=== PATIENT | female | born 1980 | race Caucasian/White ===

== ENCOUNTER 2024-05-07 09:11 | Emergency (ER) | payer BC, SELFPAY ==
[2024-05-07 10:00] VITALS: BP 126/67
[2024-05-07 10:17] VITALS: BP 126/67
--- NOTE | 2024-05-07 10:44 | ED.GENMED ---
History of Present Illness
General
Chief Complaint: Heart Rate Problem
Source: patient
Exam Limitations: none
Time Seen by Provider: 05/07/24 10:11
Nursing documentation reviewed up to this point in time: agreed with
History of Present Illness
History of Present Illness:
Patient is a healthy 44-year-old female presents to the emergency department complaining of her heart rate going from 80-1 20 at night for the past 3 nights. Patient went to urgent care and was sent to the emergency department. Patient states she
has palpitations every now and again but this is different. Patient feels lightheaded and weak with fatigue. Patient feels chilled and a sense of shaking inside. Patient denies shortness of breath or chest pain. Patient denies any weight changes
or sleep disturbance. Patient is going through menopause and feels as though she is having hot flashes. Patient 3 nights ago had 4 episodes of diarrhea and since that time has been nauseous postprandial. Patient denies any previous episodes of
similar episodes. Patient does not smoke or drink. Patient denies any illicit medications or drugs. Patient denies any real changes.
Past History
Past History
ED Past Medical History: Other (Sjogren's syndrome)
ED Past Surgical History: Cholecystectomy
Social History
Tobacco: Non-smoker
Alcohol: None
Drug: None
Review of Systems
Review of Systems
All Other Systems: ROS reviewed and negative except as documented in HPI and ROS
Constitutional: Reports fatigue and night sweats; Denies fever, weight gain, weight loss, sleep disturbance or chills
EENT: Reports no symptoms
Respiratory: Reports no symptoms
Cardiac: Reports palpitations; Denies chest pain, diaphoresis or syncope
ABD/GI: Reports nausea and diarrhea; Denies abdominal pain, vomiting or constipated
: Reports no symptoms
Musculoskeletal: Reports no symptoms
Skin: Reports no symptoms
Neurological: Reports no symptoms
Hematologic/Lymphatic: Reports no symptoms
Psychiatric: Reports no symptoms
Phy Exam
Physical Exam
Physical Exam:
Physical Exam
General: No apparent distress, alert and appropriate, well nourished, well hydrated
HENT: Normocephalic, supple with no lymphadenopathy, no thyromegaly
Eyes: Clear sclera, conjuctiva without injection
Heart: Regular rhythm and rate. No S3, S4. No murmur. No NVD, bruit
Lungs: No respiratory distress, no stridor, lung sounds clear and equal bilaterally
Abdomen: Soft, nontender, no organomegaly, no CVA tenderness, BS good
Neuro: Alert and oriented x 3, CN II - XII intact, no motor focality, no cerebellar dysfunction
Skin: no rash
Psychiatric: well kept. interactive and cooperative
Extremities: No edema, cyanosis, tenderness, Good and equal peripheral pulses.
Course
Orders/Labs/Results
Orders:
Orders
05/07/24 09:12
ECG [Electrocardiogram (*1)] Urgent
Reason for Study: Palpitations
EKG- Treatment ONCE
05/07/24 10:42
Test Result ONCE
05/07/24 11:38
Complete Blood Count/With Diff Urgent
Comprehensive Metabolic Panel Urgent
HCG, Serum Qualitative Screen Urgent
TSH Reflex To Free T4 Urgent
Abnormal Lab Results
05/07/24
11:38
Hgb 11.7 L g/dL
(12.0-16.0)
Hct 36.3 L %
(37.0-47.0)
MCV 78.9 L fL
(81.0-99.0)
MCH 25.4 L pg
(27.0-31.0)
MCHC 32.2 L g/dL
(33.0-37.0)
RDW 14.9 H %
(11.5-14.5)
Absolute Lymphs (auto) 1.1 L 10^3/uL
(1.2-3.4)
Neutrophils % 76.4 H %
(42.2-75.2)
Lymphocytes % 16.2 L %
(20.5-51.1)
Glucose 101 H mg/dl
(70-99)
05/07/24 11:38
05/07/24 11:38
Vital Signs
Initial and Last Documented VS:
Initial Vital Signs
Temp Pulse Resp Pulse Ox
97.4 F 79 16 100
05/07/24 09:13 05/07/24 09:13 05/07/24 09:13 05/07/24 09:13
Last Documented Vital Signs
Temp Pulse Resp BP Pulse Ox
97.4 F 94 15 112/67 99
05/07/24 09:13 05/07/24 12:45 05/07/24 12:45 05/07/24 12:00 05/07/24 12:45
*Radiology
Radiology exam reviewed: other (na)
*Pulse Oximetry
Patient hypoxic: no
*EKG
Interpreted by ED Provider?: Yes
EKG Intrepretation Date: 05/07/24
EKG Intrepretation Time: 12:52
Interpretation: normal
Comparison EKG: no comparison EKG present
Heart Rate: 90
Rate: normal
Rhythm: sinus
Bradley: normal axis
Interval: normal interval
QRS Pattern: normal QRS
Ischemia: no ischemia
*Bailiff Interpretation
Rate: normal
Interpretation: normal
Heart Rate: 90
Rhythm: sinus and PAC's
*Critical Care Note
Total Time (30-74mins, 75-104mins- exclusive of procedures): Not Applicable
ED Attending Note
-
Portions of this chart may have been created with voice recognition software.� Occasional wrong word or��sound alike� substitutions may have occurred due to the inherent limitations of voice recognition software.
Discharge Plan
Departure
Patient Disposition: Home (Routine Discharge)
Date of Disposition: 05/07/24
Time of Disposition: 12:53
Patient with high blood pressure during this ER visit?: No
Condition: Good
Covid-19: Not Applicable
Discharge Problem:
Palpitations
Instructions: Palpitations (DC)
Prescriptions:
New
metoprolol succinate [Toprol XL] 25 mg tablet extended release 24 hr
12.5 mg PO DAILY PRN (Reason: palpitations) Qty: 30 0RF
Referrals:
Osman Ribeiro MD [Active] - Call in 1-3 days for appt
Interventions
Interventions:
*Risk Screen - Suicide Last Done: 05/07/24 09:13
*General Assessment Last Done: 05/07/24 11:41
*Neglect/Abuse Screening Last Done: 05/07/24 09:13
ED- Fall Risk Assessment Last Done: 05/07/24 11:42
*ED COVID-19 Vaccine History Last Done: 05/07/24 11:41
ED- Pulmonary Assessment Last Done: 05/07/24 12:18
Discharge Date and Time
Print Language: [place]
[2024-05-07 11:00] VITALS: BP 108/55
[2024-05-07 11:40] VITALS: BMI 30.7
[2024-05-07 11:45] LABS: % Basophils 0.6 % (0-2); % Eosinophils 0.3 % (0-6); % Immature Granulocytes 0.2 % (0-0.5); % Lymphocytes 16.2 % (20.5-51.1); % Monocytes 6.3 % (1.7-9.3); % Neutrophils 76.4 % (42.2-75.2); Absolute Lymphocytes 1.1 10^3/uL (1.2-3.4); Absolute Monocytes 0.4 10^3/uL (0.1-0.6); Absolute Neutrophils 4.9 10^3/uL (1.4-6.5); Hematocrit 36.3 % (37.0-47.0); Hemoglobin 11.7 g/dL (12.0-16.0); Mean Corp Hgb Conc. 32.2 g/dL (33.0-37.0); Mean Corpuscular Hgb 25.4 pg (27.0-31.0); Mean Corpuscular Volume 78.9 fL (81.0-99.0); Mean Platelet Volume 10.3 fL (7.4-10.4); Nucleated Red Blood Cells % 0 %; Platelet Count 215 10^3/uL (130-400); Red Cell Dist. Width 14.9 % (11.5-14.5); White Blood Cell Count 6.5 10^3/uL (4.8-10.8)
[2024-05-07 11:59] LABS: HCG, Serum Qualitative Screen Negative
[2024-05-07 12:00] VITALS: BP 112/67
[2024-05-07 12:04] LABS: ALT (SGPT) 22 U/L (0-35); AST (SGOT) 27 U/L (14-36); Albumin 4.8 g/dl (3.5-5.0); Alkaline Phosphatase 72 U/L (38-126); Blood Urea Nitrogen 11 mg/dl (7-17); Calcium 9.5 mg/dl (8.4-10.2); Carbon Dioxide 22 mmol/L (22-30); Chloride 104 mmol/L (98-107); Estimated Creatinine Clearance 81 ml/min; Glucose 101 mg/dl (70-99); Potassium 3.8 mmol/L (3.5-5.1); Total Bilirubin 0.5 mg/dl (0.2-1.3); Total Protein 7.7 g/dl (6.3-8.2); eGFR > 60.00
[2024-05-07 12:17] LABS: Sodium 138 mmol/L (135-145)
[2024-05-07 12:34] LABS: TSH Reflex To Free T4 1.09 uIU/ml (0.47-4.68)
[2024-05-07 14:16] VITALS: BP 112/67
== END 2024-05-07 13:15 | disposition home or self-care (01) ==
LOC: EMR 09:11
PROVIDERS: EMERGENCY PHYSICIAN Emergency Medicine
DX: R00.2 Palpitations (principal); M35.00 Sjogren syndrome, unspecified; Z90.49 Acquired absence of other specified parts of digestive tract
CPT/HCPCS: 99284; 80053; 84443; 84703; 85025; 93005

== ENCOUNTER → 2024-08-02 13:44 | Outpatient (REF) | payer BC, SELFPAY | LOC: HWRCS 13:44 | PROVIDERS: ATTENDING PHYSICIAN Internal Medicine Cardiovascular Disease; FAMILY PHYSICIAN Student in an Organized Health Care Education/Training Program | DX: R06.09 Other forms of dyspnea (principal) | CPT/HCPCS: 93306 ==

== ENCOUNTER 2024-11-22 09:24 | Emergency (ER) | payer BC, SELFPAY ==
[2024-11-22] VITALS (7 sets, daily range): BP systolic 106–144; BP diastolic 56–86; BMI 29.3
[2024-11-22 10:04] LABS: % Basophils 0.5 % (0-2); % Immature Granulocytes 0.2 % (0-0.5); % Lymphocytes 9.6 % (20.5-51.1); % Monocytes 2.8 % (1.7-9.3); % Neutrophils 86.9 % (42.2-75.2); Absolute Lymphocytes 0.6 10^3/uL (1.2-3.4); Absolute Monocytes 0.2 10^3/uL (0.1-0.6); Absolute Neutrophils 5.3 10^3/uL (1.4-6.5); Hematocrit 37.2 % (37.0-47.0); Hemoglobin 11.9 g/dL (12.0-16.0); Mean Corpuscular Hgb 25.9 pg (27.0-31.0); Mean Platelet Volume 10.6 fL (7.4-10.4); Nucleated Red Blood Cells % 0 %; Platelet Count 221 10^3/uL (130-400); Red Blood Cell Count 4.59 10^6/uL (4.20-5.40); Red Cell Dist. Width 16.1 % (11.5-14.5); White Blood Cell Count 6.1 10^3/uL (4.8-10.8)
--- NOTE | 2024-11-22 10:11 | ED.GENMED ---
History of Present Illness
General
Chief Complaint: Heart Rate Problem
Source: patient
Exam Limitations: none
Time Seen by Provider: 11/22/24 09:36
Nursing documentation reviewed up to this point in time: agreed with
History of Present Illness
History of Present Illness:
Patient is a 44-year-old female who presents to the ER for evaluation. Patient has a history of palpitations she reports that she has had them off-and-on for 2 years. She has been eval by cardiology, Dr. Velazquez and has had a Holter monitor and
other testing in the past. She was given a prescription for metoprolol and told she could take it if she wanted to. She does report she has not been taking it did not feel she needed it however yesterday she started with intermittent palpitations
and a heart racing sensation. She does report she gets nausea with this and dizziness and feels like she must go to pass out. This is similar as her previous presentation. She reports she gets these episodes about every 6 months.
She did have back pain and presented to urgent care which is why they sent her to the ER. She typically does not get back pain when she gets the symptoms. She did feel little short of breath but does feel that she is anxious over her symptoms and
that is causing her shortness of breath.
She takes no medicines every day no prior history of DVT PE. No DVT PE risk factors. No oral contraceptives or smoking.
She denies any extremity swelling.
She does drink 1 cup of caffeinated tea a day and only had a couple sips yesterday.
Past History
Past History
ED Past Medical History: Other (Sjogren's syndrome)
ED Past Surgical History: Cholecystectomy
Social History
Tobacco: Non-smoker
Alcohol: None
Drug: None
Review of Systems
Review of Systems
Allergies reviewed?: Yes
All Other Systems: ROS reviewed and negative except as documented in HPI and ROS
Constitutional: Reports no symptoms; Denies fever
Respiratory: Reports no symptoms
Cardiac: Reports palpitations; Denies chest pain, diaphoresis or syncope
ABD/GI: Reports no symptoms
Musculoskeletal: Reports no symptoms
Skin: Reports no symptoms
Neurological: Reports no symptoms
Psychiatric: Reports no symptoms
Phy Exam
General Physical Exam
General Presentation: no apparent distress
General age: appears stated age
General Skin: warm and dry
General Habitus: normal
General Mental: alert
General Hydration: appears well hydrated
Cardiovascular Exam
Cardiovascular Exam: regular rate/rhythm, no murmur and normal peripheral pulses
Pulmonary Exam
Pulmonary Exam: lungs clear and no respiratory distress
Neurological Exam
Neurological Exam: alert and oriented x3
Course
Orders/Labs/Results
Orders:
Orders
11/22/24 09:28
EKG [Electrocardiogram (*1)] Urgent
Reason for Study: Palpitations
EKG- Treatment ONCE
11/22/24 09:56
Test Result ONCE
11/22/24 09:57
Complete Blood Count/With Diff Urgent
Comprehensive Metabolic Panel Urgent
HCG, Serum Qualitative Screen Urgent
Comment: Notify provider if positive test present
TSH Reflex To Free T4 Urgent
Comment: ADD ON
Troponin I Urgent
11/22/24 10:15
Add On- LAB Urgent
Tests Added?: tsh w/ reflexive t4
11/22/24 10:28
Chest [CR Chest - 2 Views ] Urgent
Comment:
Reason For Exam: cp
11/22/24 10:39
DDimer [D-Dimer] Urgent
11/22/24 11:22
CT Chest PE Study Urgent
Comment:
Reason For Exam: sob palpitations, back pain
Abnormal Lab Results
11/22/24 11/22/24
09:57 10:39
Hgb 11.9 L g/dL
(12.0-16.0)
MCH 25.9 L pg
(27.0-31.0)
MCHC 32.0 L g/dL
(33.0-37.0)
RDW 16.1 H %
(11.5-14.5)
MPV 10.6 H fL
(7.4-10.4)
Absolute Lymphs (auto) 0.6 L 10^3/uL
(1.2-3.4)
Neutrophils % 86.9 H %
(42.2-75.2)
Lymphocytes % 9.6 L %
(20.5-51.1)
D-Dimer 1.24 H ug/mlFEU
(0.00-0.50)
Chloride 111 H mmol/L
(98-107)
Glucose 119 H mg/dl
(70-99)
11/22/24 09:57
11/22/24 09:57
Vital Signs
Initial and Last Documented VS:
Initial Vital Signs
Temp Pulse Resp BP Pulse Ox
98.1 F 85 18 144/86 98
11/22/24 09:25 11/22/24 09:25 11/22/24 09:25 11/22/24 09:25 11/22/24 09:25
Last Documented Vital Signs
Temp Pulse Resp BP Pulse Ox
98.1 F 92 20 106/64 99
11/22/24 09:25 11/22/24 14:00 11/22/24 14:00 11/22/24 14:00 11/22/24 14:00
MDM/Problems Addressed
MDM/Problems Addressed:
As documented patient is a 44-year-old female with intermittent history of palpitations cleared by cardiology. She presented with palpitations today which was concerning to her which is what prompted her to come to the ER. She presents awake alert
no acute distress. She is nontachycardic here normal EKG no recent fever chills no new [id number] medicines or excessive caffeine intake. Denies any recent illness fever chills her white count is normal her hemoglobin is stable her chemistry
is unremarkable. TSH is normal.
She has some back pain and felt little short of breath when she palpitations she felt this was anxiety however with symptoms D-dimer was done mildly elevated therefore CAT scan was done and negative for PE. Patient is otherwise stable here has had
no arrhythmias stable for discharge with outpatient cardiology follow-up.
She has not been taking her metoprolol though she did take it this morning. I did review with patient the importance of taking this medication and closely follow-up with Marcus.
*Radiology
Radiology exam reviewed: radiology read reviewed
*Pulse Oximetry
Patient hypoxic: no
*EKG
Interpreted by ED Provider?: Yes
Comparison EKG: no changes
Heart Rate: 87
Rate: normal
Rhythm: sinus
Ischemia: no ischemia
*Critical Care Note
Total Time (30-74mins, 75-104mins- exclusive of procedures): Not Applicable
ED Attending Note
-
Portions of this chart may have been created with voice recognition software.� Occasional wrong word or��sound alike� substitutions may have occurred due to the inherent limitations of voice recognition software.
Discharge Plan
Departure
Patient Disposition: Home (Routine Discharge)
Date of Disposition: 11/22/24
Time of Disposition: 14:35
Patient with high blood pressure during this ER visit?: No
Condition: Fair
Covid-19: Not Applicable
Discharge Problem:
Palpitations
Instructions: Palpitations - ED discharge instructions, BLOOD PRESSURE
Prescriptions:
No Action
metoprolol succinate [Toprol XL] 25 mg tablet extended release 24 hr
12.5 mg PO DAILY PRN (Reason: palpitations) Qty: 30 0RF
Referrals:
Alexis Velazquez MD [Active] -
NONE,* [Family Provider] -
Activity Restrictions/Additional Instructions:
As discussed continue your previously prescribed metoprolol and follow-up with cardiology. Return if any worsening of symptoms.
Interventions
Interventions:
*Risk Screen - Suicide Last Done: 11/22/24 09:25
*General Assessment Last Done: 11/22/24 09:25
*Neglect/Abuse Screening Last Done: 11/22/24 09:25
*ED- Fall Risk Assessment Last Done: 11/22/24 09:25
*ED COVID-19 Vaccine History Last Done: 11/22/24 09:25
ED- Cardiac Assessment Last Done: 11/22/24 10:00
ED- Pulmonary Assessment Last Done: 11/22/24 10:00
Discharge Date and Time
Print Language: [place]
[2024-11-22 10:20] LABS: ALT (SGPT) 22 U/L (0-35); AST (SGOT) 22 U/L (14-36); Albumin 4.2 g/dl (3.5-5.0); Alkaline Phosphatase 67 U/L (38-126); Blood Urea Nitrogen 9 mg/dl (7-17); Calcium 9.1 mg/dl (8.4-10.2); Carbon Dioxide 24 mmol/L (22-30); Chloride 111 mmol/L (98-107); Estimated Creatinine Clearance 93 ml/min; Glucose 119 mg/dl (70-99); Potassium 4.2 mmol/L (3.5-5.1); Sodium 140 mmol/L (135-145); Total Bilirubin 0.7 mg/dl (0.2-1.3); Total Protein 7.9 g/dl (6.3-8.2); eGFR > 60.00
[2024-11-22 10:27] LABS: HCG, Serum Qualitative Screen Negative
[2024-11-22 10:30] LABS: Troponin I < 0.012 ng/ml
[2024-11-22 11:09] LABS: D-Dimer 1.24 ug/mlFEU (0.00-0.50)
[2024-11-22 11:40] LABS: TSH Reflex To Free T4 1.06 uIU/ml (0.47-4.68)
== END 2024-11-22 14:58 | disposition home or self-care (01) ==
LOC: EMR 09:24
PROVIDERS: Nurse Practitioner; EMERGENCY PHYSICIAN Emergency Medicine
DX: R00.2 Palpitations (principal); M35.00 Sjogren syndrome, unspecified; Z90.49 Acquired absence of other specified parts of digestive tract
CPT/HCPCS: 99284; 71046; 71275; 80053; 84443; 84484; 84703; 85025; 85379; 93005; Q9967